=== PATIENT | female | born 1955 | race Caucasian/White ===

== ENCOUNTER 2020-11-11 22:20 | Observation (INO) | payer MEDICARE, SELFPAY ==
[2020-11-11 22:30] VITALS: BP 202/124; PULSE 74; PULSE 76; RESP 14; RESP 18; TEMP 36.7; O2SAT 95; BMI 28.1
--- NOTE | 2020-11-11 22:34 | W.ED.GENADLT ---
HPI - General Adult General: Chief complaint: ER Hold Stated complaint: HIGH BP Time Seen by Provider: 11/11/20 22:24 Source: patient and family Mode of arrival: ambulatory Limitations: no limitations History of Present Illness: HPI narrative: is a very nice 65-year-old female who comes in complaining of high blood pressure. Patient states that she took her regular medicines today including 100 mg of losartan this morning and 50 mg of atenolol tonight. She took the atenolol just before taking her blood pressure. Patient states that she checked her blood pressure and it was 188 systolic and that was very high for her. Because of this she repeatedly took her blood pressure multiple times she states each time it went higher making her more and more anxious. Patient has had in the past a prescription for clonidine and she took 0.5 mg of clonidine just prior to arrival. Patient denies any headache, visual problems, neck pain, chest pain, shortness of breath, back pain, abdominal pain, extremity pain or swelling or edema. Patient states she is asymptomatic and the only reason she checked her blood pressure is because she does so routinely every night before going to bed. Associated symptoms: Deny chest pain, confusion, diaphoresis, dyspnea, headache(s), malaise, nausea, rash, palpitations, syncope or vomiting Review of Systems Const: Denies: fever(s), chills, body aches, fatigue, malaise or diaphoresis Eyes: Denies: change in vision, blurry vision, photophobia, eye discomfort, eye discharge, eye redness or yellow eyes ENMT: Denies: throat pain, odynophagia, hoarseness, swelling of lips/tongue, ear or mastoid pain, ear discharge, change in hearing or nasal discharge Card: Denies: chest pain, palpitations, irregular heart rhythm, edema, lightheadedness, syncope, pre-syncope, dyspnea on exertion or orthopnea Resp: Denies: dyspnea, productive cough, non-productive cough, wheezing, hemoptysis or chest congestion GI: Denies: abdominal pain, nausea, vomiting, hematemesis, coffee ground emesis, heartburn, diarrhea, constipation, GI cramping, hematochezia or melena : Denies: flank pain, dysuria, urinary frequency, urinary urgency or hematuria Musc: Denies: neck pain, back pain, extremity pain, extremity swelling, joint pain, joint swelling, joint redness, joint warmth or joint stiffness Skin/Breast: Denies: rash, pruritus, erythema, skin pain or skin tenderness Neuro: Denies: headache(s), numbness in extremities, weakness in extremities, sensory changes, lack of coordination, difficulty walking, dizziness, vertigo, confusion, Slurred speech present or seizure-like activity Eddie/Lymph: Denies: easy bruising, easy bleeding, petechiae, purpura or enlarged lymph nodes All/Imm: Denies: urticaria, throat swelling, tongue swelling, facial swelling or acute wheezing PFSH ED PFSH: Medical History (Updated 11/11/20 @ 22:34 by Rona Guzman) Hypertension Physical Exam Const: COMMON NORMALS: no acute distress, patient oriented x3, no limitations and alert GENERAL APPEARANCE: cooperative HENMT: COMMON NORMALS: normocephalic, atraumatic, external ears normal, EAC's normal and Normal external nose present HEAD & SCALP: normal to inspection, normocephalic and atraumatic FACE & SINUS: normal facial exam and face symmetric NOSE: Normal external nose present and Normal nares present EXTERNAL EAR: Yes external ears normal EXTERNAL AUDITORY CANAL: EAC's normal MOUTH: Normal oral and palatal mucosa present, lip normal and tongue normal Eye: COMMON NORMALS: Equal, round and reactive pupils present and conjunctivae normal GENERAL EYE: appearance normal, both eyes and all related structures ALIGNMENT: Yes alignment normal PERIORBITAL: periorbital findings normal EYELID: eyelids normal CONJUNCTIVA: Yes conjunctivae normal SCLERA: sclerae normal PUPIL: Yes Equal, round and reactive pupils present Neck/C-Spine: COMMON NORMALS: full ROM, no lymphadenopathy, supple, no meningeal signs and no JVD GENERAL: Yes normal visual inspection and Yes trachea midline Chest: COMMONS NORMALS: normal inspection of the chest and normal palpation of entire chest wall Resp: COMMON NORMALS: normal respiratory effort, No retractions, No use of accessory muscles and clear to auscultation bilaterally EFFORT & INSPECTION: Yes able to speak in complete sentences and Yes symmetric chest movement AUSCULTATION: clear to auscultation bilaterally, no crackles, no rales, no rhonchi and no wheezes Cardio: COMMON NORMALS: no JVD, regular rate, regular rhythm, S1 normal heart sound present and S2 normal heart sound present RATE: regular rate RHYTHM: regular rhythm HEART SOUNDS: S1 normal heart sound present, S2 normal heart sound present, no click, no gallops, no murmurs and no rubs GI: COMMON NORMALS: Soft to palpation and No hepatosplenomegaly present PALPATION: Yes Soft to palpation, No Tenderness to palpation present (GI), No Guarding due to palpation present (GI), No Rigid due to palpation, Yes No hepatosplenomegaly present, No Hernia present, No Palpable mass present and No Pulsatile mass present : COMMON NORMALS: Yes no CVA tenderness BLADDER/KIDNEY EXAM: Yes no CVA tenderness EXTERNAL FEMALE EXAM: No Hernia present Back/Pelvis: COMMON NORMALS: no CVA tenderness, thoracic and lumbar spine normal to inspection, no thoracic nor lumbar tenderness and thoraco-lumbar ROM normal Extremity: COMMON NORMALS: normal to inspection, full ROM, capillary refill normal, no joint enlargement, no clubbing, cyanosis or edema and no calf tenderness Neuro: COMMON NORMALS: patient oriented x3, CN's II-XII intact bilaterally, moves all extremities, no focal motor deficits and no sensory deficits noted SENSORIUM/ORIENTATION: Yes alert MENINGEAL SIGNS: Yes no meningeal signs SPEECH: speech normal Psych: COMMON NORMALS: mental status grossly normal, Normal thought process present, cooperative, normal affect, speech normal and activity/motor behavior normal SPEECH: Yes normal speech THOUGHT PROCESS: Normal thought process present Skin: COMMON NORMALS: no rashes or lesions noted, turgor normal, no jaundice, no petechiae and no mottling GENERAL SKIN EXAM: no rashes or lesions noted and turgor normal Course Vital Signs: Vital signs: Vital Signs Temperature 98.1 F 11/11/20 22:30 Pulse Rate 80 11/12/20 04:18 Respiratory Rate 16 11/12/20 04:18 Blood Pressure 148/101 11/12/20 04:18 Pulse Oximetry 94 11/12/20 04:18 MDM - General Adult MDM Narrative: Medical decision making narrative: is a very nice 65-year-old female comes in with an elevated blood pressure. This may be hypertensive urgency but her EKG has progressed showing more ischemic changes and also her troponin has had a significant delta. Patient remains asymptomatic. Because her troponins are trending up and her EKG is showing continued change I believe she should be kept for rule out positive stress testing. I have endorsed the case to Dr. Salinas and he is agreeable to admit for further evaluation and care. Lab Data: Attestation: I reviewed the patient's lab results. Labs: Lab Results 11/11/20 11/11/20 11/11/20 Range/Units 23:00 23:00 23:01 WBC 4.9 (4.0-10.0) 10^3/ uL RBC 4.65 (4.1-5.3) 10^6/u L Hgb 14.4 (11.5-15.3) g/dL Hct 43.0 (37.0-47.0) % MCV 92.5 (81-99) fL MCH 31.0 (28.0-34.0) pg MCHC 33.5 (30.0-36.0) g/dL RDW 13.7 (12.1-15.1) % Plt Count 222 (130-400) 10^3/c mm MPV 10.0 (7.4-10.4) fL Neut % (Auto) 40.2 % Lymph % (Auto) 42.4 % Antelope % (Auto) 11.9 % Eos % (Auto) 3.5 % Baso % (Auto) 1.6 % Neut # (Auto) 1.96 (1.8-7.7) 10^3/u L Lymph # (Auto) 2.1 (0.8-4.8) 10^3/u L Antelope # (Auto) 0.6 (0.2-0.9) 10^3/u L Eos # (Auto) 0.2 (0.0-0.8) 10^3/u L Baso # (Auto) 0.1 (0.0-0.1) 10^3/u L Nucleated RBC % (a uto) 0 % Nucleated RBCs # 0.0 /100WBC D-Dimer 0.57 (0-0.59) ug/mIFE U Sodium 139 (136-145) mmol/L Potassium 4.1 (3.5-5.1) mmol/L Chloride 101 (98-107) mmol/L Carbon Dioxide 26 (22-29) mmol/L Anion Gap 16.1 (5-19) BUN 9 (8-23) mg/dL Creatinine 0.4 L (0.5-0.9) mg/dL GFR Calculation 159.7 H (90-130) mL/min Glucose 115 (65-115) mg/dL Calculated Osmolal ity 288 (285-295) mOsm/k g Calcium 9.9 (8.5-10.5) mg/dL Magnesium 1.7 (1.7-2.3) mg/dL Total Bilirubin 0.2 (0.15-1.2) mg/dL AST 24 (0-32) U/L ALT 28 (0-33) U/L Alkaline Phosphata se 85 (35-105) IU/L Troponin T Baselin e (0-10) ng/L Troponin T 120 Min burns paiute (0-10) ng/L Delta Troponin T (0-10) ABS# Total Protein 7.5 (6.6-8.7) g/dL Albumin 4.5 (3.5-5.2) g/dL Globulin 3.0 (1.3-4.6) g/dL Urine Color (Yellow) Urine Appearance (CLEAR) Urine pH (5-7) Ur Specific Gravit y (1.005-1.030) Urine Protein (Negative) Urine Glucose (UA) (Normal) Urine Ketones (Negative) Urine Blood (Negative) Urine Nitrate (Negative) Urine Bilirubin (Negative) Urine Urobilinogen (Negative) mg/dL Ur Leukocyte Norma ase (Negative) Urine RBC (0-2) /hpf Urine WBC (0-5) /hpf Ur Squamous Epith Cells (0-5) /hpf Ur Transition Epit h Cell /hpf Amorphous Sediment Urine Bacteria (NONE) /hpf 11/11/20 11/12/20 11/12/20 Range/Units 23:03 02:00 03:16 WBC (4.0-10.0) 10^3/ uL RBC (4.1-5.3) 10^6/u L Hgb (11.5-15.3) g/dL Hct (37.0-47.0) % MCV (81-99) fL MCH (28.0-34.0) pg MCHC (30.0-36.0) g/dL RDW (12.1-15.1) % Plt Count (130-400) 10^3/c mm MPV (7.4-10.4) fL Neut % (Auto) % Lymph % (Auto) % Antelope % (Auto) % Eos % (Auto) % Baso % (Auto) % Neut # (Auto) (1.8-7.7) 10^3/u L Lymph # (Auto) (0.8-4.8) 10^3/u L Antelope # (Auto) (0.2-0.9) 10^3/u L Eos # (Auto) (0.0-0.8) 10^3/u L Baso # (Auto) (0.0-0.1) 10^3/u L Nucleated RBC % (a uto) % Nucleated RBCs # /100WBC D-Dimer (0-0.59) ug/mIFE U Sodium (136-145) mmol/L Potassium (3.5-5.1) mmol/L Chloride (98-107) mmol/L Carbon Dioxide (22-29) mmol/L Anion Gap (5-19) BUN (8-23) mg/dL Creatinine (0.5-0.9) mg/dL GFR Calculation (90-130) mL/min Glucose (65-115) mg/dL Calculated Osmolal ity (285-295) mOsm/k g Calcium (8.5-10.5) mg/dL Magnesium (1.7-2.3) mg/dL Total Bilirubin (0.15-1.2) mg/dL AST (0-32) U/L ALT (0-33) U/L Alkaline Phosphata se (35-105) IU/L Troponin T Baselin e 6 (0-10) ng/L Troponin T 120 Min burns paiute 14.87 H (0-10) ng/L Delta Troponin T 8.87 (0-10) ABS# Total Protein (6.6-8.7) g/dL Albumin (3.5-5.2) g/dL Globulin (1.3-4.6) g/dL Urine Color Yellow (Yellow) Urine Appearance Sl hazy (CLEAR) Urine pH 7 (5-7) Ur Specific Gravit y 1.000 L (1.005-1.030) Urine Protein Neg (Negative) Urine Glucose (UA) Norm (Normal) Urine Ketones Negative (Negative) Urine Blood Neg (Negative) Urine Nitrate Negative (Negative) Urine Bilirubin Neg (Negative) Urine Urobilinogen Norm (Negative) mg/dL Ur Leukocyte Norma ase 2+ H (Negative) Urine RBC 0-4 H (0-2) /hpf Urine WBC 15-25 H (0-5) /hpf Ur Squamous Epith Cells 0-4 H (0-5) /hpf Ur Transition Epit h Cell 0-4 /hpf Amorphous Sediment Not Reportable Urine Bacteria Trace (NONE) /hpf Imaging Data^: CXR: Attestation: I personally reviewed and interpreted this imaging study as follows: EKG Data^: EKG 1: Attestation: I personally reviewed and interpreted this EKG as follows: EKG interpretation date: 11/11/20 EKG interpretation time: 23:48 Interpretation: Normal sinus rhythm at 70 beats minute, T wave inversions in V2 and V3. Mild ST segment depression associated with this. No old for comparison. EKG 2: Attestation: I personally reviewed and interpreted this EKG as follows: EKG interpretation date: 11/12/20 EKG interpretation time: 02:40 Interpretation: Normal sinus rhythm at 66 beats a minute, mild ST segment depression inferiorly T wave inversions in lead III. T wave inversions V1 through V4 with mild ST segment depression in V3 and V4. Discharge Plan Discharge Condition: Good Coding Level of Care Code ED Tour Consultant for Chg Fwd Exam Comprehensive
[2020-11-11 23:00] VITALS: BP 198/115; PULSE 72; RESP 16; O2SAT 92
[2020-11-11] MEDS: LORazepam 2 mg/mL INJ 1 mL 0.5 MG IVP (23:03)
[2020-11-11 23:07] LABS: Basophils # 0.1 10^3/uL (0.0-0.1); Basophils % 1.6 %; Eosinophils # 0.2 10^3/uL (0.0-0.8); Eosinophils % 3.5 %; Hemoglobin 14.4 g/dL (11.5-15.3); Lymphocytes # 2.1 10^3/uL (0.8-4.8); Lymphocytes % 42.4 %; Mean Corpuscular HGB Conc 33.5 g/dL (30.0-36.0); Mean Corpuscular Volume 92.5 fL (81-99); Monocytes # 0.6 10^3/uL (0.2-0.9); Monocytes % 11.9 %; Neutrophils # 1.96 10^3/uL (1.8-7.7); Neutrophils % 40.2 %; Nucleated Red Blood Cells % 0 %; Platelet Count 222 10^3/cmm (130-400); Red Blood Count 4.65 10^6/uL (4.1-5.3); Red Cell Distribution Width 13.7 % (12.1-15.1); White Blood Count 4.9 10^3/uL (4.0-10.0)
[2020-11-11 23:24] LABS: Alanine Aminotransferase 28 U/L (0-33); Albumin Level 4.5 g/dL (3.5-5.2); Alkaline Phosphatase 85 IU/L (35-105); Anion Gap 16.1 (5-19); Aspartate Amino Transferase 24 U/L (0-32); Blood Urea Nitrogen 9 mg/dL (8-23); Calcium 9.9 mg/dL (8.5-10.5); Carbon Dioxide 26 mmol/L (22-29); Chloride 101 mmol/L (98-107); Glomerular Filtration Rate 159.7 mL/min (90-130); Glucose 115 mg/dL (65-115); Magnesium 1.7 mg/dL (1.7-2.3); Osmolality Calculated 288 mOsm/kg (285-295); Potassium 4.1 mmol/L (3.5-5.1); Sodium 139 mmol/L (136-145); Total Bilirubin 0.2 mg/dL (0.15-1.2); Total Protein 7.5 g/dL (6.6-8.7)
[2020-11-11 23:30] VITALS: BP 155/96; PULSE 71; RESP 18; O2SAT 95
--- NOTE | 2020-11-11 23:54 | ECG_ITS ---
[facility] Test Date: 2020-11-11 Pat Name: LYSSA PALMER Department: Room: Gender: Female Signal Manager: : 1955 Requested By: Rona Venegas Order Number: [id number] Flaquita MD: Kris Loja M.D. Measurements Intervals [place] Rate: 70 P: 28 OR: 182 QRS: -28 QRSD: 95 T: 12 QT: 417 QTc: 453 Interpretive Statements SINUS RHYTHM BORDERLINE LEFT AXIS DEVIATION [QRS AXIS < -20] MINIMAL ST DEPRESSION [0.025+ mV ST DEPRESSION] No previous ECG available for comparison Electronically Signed On 11-12-2020 13:06:08 ENTERPRISE CLOUD ARCHITECT by Kris Loja M.D. [id number] f
[2020-11-12] VITALS (18 sets, daily range): BP systolic 129–168; BP diastolic 78–103; PULSE 68–80; RESP 1–18; O2SAT 92–95
[2020-11-12 00:17] LABS: Troponin(5th) Baseline 6 ng/L (0-10)
--- NOTE | 2020-11-12 01:54 | ECG_ITS ---
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 Measurements Intervals [place] Rate: 66 P: 0 IL: 171 QRS: -28 QRSD: 89 T: 5 QT: 430 QTc: 453 Interpretive Statements SINUS RHYTHM LOW QRS VOLTAGE IN PRECORDIAL LEADS [QRS DEFLECTION < 1.0 mV IN CHEST LEADS] POSSIBLE RIGHT VENTRICULAR CONDUCTION DELAY [RSR (QR) IN V1/V2] POSSIBLE ANTERIOR MYOCARDIAL INFARCTION , OF INDETERMINATE AGE [30 ms Q WAVE IN V3/V4, OR R < 0.2 mV IN V4] Compared to ECG 11/11/2020 23:48:29 Low QRS voltage now present Myocardial infarct finding now present ST (T wave) deviation no longer present Electronically Signed On 11-12-2020 17:02:27 DUCT MAKER by Kris Loja M.D. [id number] eason
[2020-11-12 02:34] LABS: Troponin 5 2HR 14.87 ng/L (0-10); Troponin 5 2HR Delta 8.87 ABS# (0-10)
--- NOTE | 2020-11-12 03:20 | PM.HP ---
Providers/Chief Complaint Primary Care Provider: Palma Bae MD Chief Complaint: HIGH BP History of Present Illness LYSSA PALMER is a 65 year old female who has history of hypertension presented today with chief complaint of blood pressure staying high. Patient usually checks her pressure at night before going to bed, last night her blood pressure first reading 155/60 mmHg, she took her nighttime atenolol that she usually takes, recheck blood pressure twice readings 165 systolic millimeter mercury, 180 mmHg that concerned her and increase her anxiety. She started thinking about Covid associated with hypotension and decided to come to the hospital for further evaluation. She never experienced any chest pain shortness of breath, nausea, vomiting neurological changes, weakness in her arms or legs. Usually she takes losartan, atenolol, she stopped taking amlodipine because her blood pressure was staying low. Currently she is on keto diet and last night she tried mashed potatoes otherwise she is trying to eat carbohydrate restricted diet. is stating that she stays tired most of the time. Diagnosis in the ER revealed hypertension, she received lorazepam 0.5 mg IV push which seemed to improve her blood pressure at the time my evaluation her blood pressure was 165/103mmhg, she had no neurological changes, EKG was showing T wave inversion and ST depression in anterolateral leads, troponin second troponin XIV dose of 8.8, she never experienced any chest pain throughout this. Decision was made to observe her because of EKG changes. Review of Systems Const: Denies: fever(s) Eyes: Denies: change in vision ENMT: Denies: throat pain Card: Denies: chest pain Resp: Denies: dyspnea GI: Denies: abdominal pain : Denies: flank pain Musc: Denies: neck pain Skin/Breast: Denies: rash Neuro: Denies: headache(s) Psych: Reports: anxiety Endo: Denies: polyuria Eddie/Lymph: Denies: easy bruising All/Imm: Denies: urticaria Medications/Allergies Allergies Allergy/AdvReac Type Severity Reaction Status Date / Time ciprofloxacin [From Cipro] Allergy ADR-Nausea Verified 11/11/20 22:30 Penicillins Allergy ALGY-Rash Verified 11/11/20 22:30 Wkndywv-Bps-Wsr Reductase Allergy ADR-Muscle Verified 11/11/20 22:30 Inhibitor Pain PFSH Acute PFSH: Medical History Breast cyst Hypertension Surgical History H/O knee surgery H/O: hysterectomy Hx of tonsillectomy Tubal ligation status Family History Sister Family history of premature coronary artery disease Other CAD (coronary artery disease) Social History Smoking and tobacco status: never smoked Alcohol intake: never Substance/Drug Use: never Household members: spouse Housing: House Vitals/I&O/Wt Last Vital Signs Temp 98.1 F 11/11/20 22:30 Pulse 69 11/12/20 02:30 Resp 16 11/12/20 02:30 BP 148/89 11/12/20 02:30 Pulse Ox 95 11/12/20 02:30 Weight last 48 hrs Weight 81.647 kg Physical Exam Narrative: EXAM NARRATIVE: Middle-age female appears younger than stated age Well-built well-hydrated Appears anxious about her blood pressure and Covid pandemic She is also endorsing social stressors because of her recent move from [place] to [place] S1, S2 no murmur appreciated Abdomen soft nontender bowel sound present No neurological deficit noted, GCS 15 awake alert oriented x3 EOMI, PERRLA Lower extremity no edema gangrene or ulcer Anxious mood No hemodynamic compromise Data : 11/11/20 23:00 11/11/20 23:00 A&P Assessment and plan (1) Hypertensive urgency: Hypertensive urgency Patient is endorsing social stressors, stopped taking amlodipine about 2 months ago currently on keto diet no active chest pain shortness of breath or neurological changes Her systolic blood pressure is ranging between 140s to 160smmhg Normal electrolytes I would add amlodipine to her atenolol and losartan regimen and discussed option of adding a diuretic if her blood pressure stays high My threshold to start ACS protocol would be low considering EKG changes, will wait on 6-hour troponin Status: Acute Additional A&P Information Abnormal EKG T wave inversion lead III, aVF ST depression V2 V3 V4 No active chest pain no significant delta troponin I would request echo in the morning to rule out wall motion abnormality She does have family history of premature coronary disease Anxiety: I would add 0.25 mg of Ativan for as needed use Cardiac diet DVT prophylaxis Lovenox Full code Attestations Medical Necessity Statement*: Anticipating discharge in less than 48 hours continued overnight monitoring because of significant ST changes on EKG and hypertensive urgency Time Spent in Patient Care: (>than 50% of time spent in counselling and/or direct pt care on unit). 50mins Coding Level of Care Code Acute Qual Research Manager for Eric Younger Diagnoses Hypertensive urgency I16.0
[2020-11-12 03:29] LABS: Blood Urine Neg (Negative); Glucose Urine UA Norm (Normal); Ketones Urine Negative (Negative); Nitrate Urine Negative (Negative); Protein Urine Neg (Negative); Urine Appearance SL Hazy (CLEAR); Urine Color Yellow (Yellow); pH Urine 7 (5-7)
[2020-11-12 03:30] LABS: Add Urine Microscopic? YES; Bilirubin Urine Neg (Negative); Leukocyte Esterase Urine 2+ (Negative); Urobilinogen Urine Norm (Negative)
[2020-11-12 03:31] LABS: Bacteria Urine TRACE /hpf; RBC Urine 0-4 /hpf (0-2); Squamous Epithelial Cell Urine 0-4 /hpf (0-5); Transitional Epi Cells Urine 0-4 /hpf; WBC Urine 15-25 /hpf (0-5)
[2020-11-12 03:32] LABS: Add Urine Culture? Yes
[2020-11-12 03:55] LABS: D Dimer 0.57 ug/mIFEU (0-0.59)
[2020-11-12] MEDS: cefTRIAXone 1,000 MG in sodium chloride 0.9% (plus) 50 ML 100 MG IV (04:13)
--- NOTE | 2020-11-12 04:36 | USCV_ITS ---
LYSSA PALMER Age: 65 Gender: F : 1955 Exam Date: 11/12/2020 05:08 Ordering Phys: Diane Salinas MD Technologist: Jennifer Marcus [place] [facility] [place] Indication: ST DEPRESSION BP: 150 / 87 HR: 66 Rhythm: Sinus Technical Quality: Adequate MEASUREMENTS (Male / Female) Normal Values 2D ECHO LV Diastolic Diameter PLAX 4.0 cm 4.2 - 5.9 / 3.9 - 5.3 cm LV Systolic Diameter PLAX 2.1 cm LV Chamber Size 4.0 cm IVS Diastolic Thickness 1.1 cm 0.6 - 1.0 / 0.6 - 0.9 cm IVS Systolic Thickness 1.4 cm LVPW Diastolic Thickness 1.2 cm 0.6 - 1.0 / 0.6 - 0.9 cm LVPW Systolic Thickness 1.9 cm RV Chamber Size 2.2 cm LVOT Diameter 2.0 cm LV Ejection Fraction 2D Teich 79.1 % LV Ejection Fraction MOD 2C 66.3 % LV Ejection Fraction 2C AL 67.5 % LA Diameter 3.0 cm LA Width 2.9 cm LA Height 3.1 cm RA Width 3.0 cm RA Height 3.9 cm Aorta at Sinotubular Diameter 2.9 cm M-MODE LV Diastolic Diameter MM 4.6 cm 4.2 - 5.9 / 3.9 - 5.3 cm LV Systolic Diameter MM 3.1 cm LV Ejection Fraction MM Teich 61.6 % IVS Diastolic Thickness MM 0.8 cm 0.6 - 1.0 / 0.6 - 0.9 cm IVS Systolic Thickness MM 1.4 cm LVPW Diastolic Thickness MM 1.2 cm 0.6 - 1.0 / 0.6 - 0.9 cm LVPW Systolic Thickness MM 1.4 cm RV Diastolic Diameter MM 1.5 cm Aortic Annulus Diameter 3.3 cm LA Ao Ratio MM 1.1 MV E Point Septal Separation 0.5 cm DOPPLER AV Peak Velocity 124.0 cm/s LVOT Peak Velocity 90.0 cm/s AV Area Cont Eq vti 2.9 cm squared AV Area Cont Eq pk 2.3 cm squared MV Area PHT 3.2 cm squared Mitral E to A Ratio 0.8 MV E' Velocity 38.0 cm/s Mitral E to MV E' Ratio 9.5 Mitral E to LV E' Lateral Ratio 10.4 Mitral E to LV E' Septal Ratio 8.9 TR Peak Velocity 267.4 cm/s TR Peak Gradient 28.6 mmHg TR Mean Velocity 171.6 cm/s TR Mean Gradient 13.9 mmHg TR Velocity Time Integral 55.8 cm TV Peak E Velocity 48.0 cm/s Right Atrial Pressure 3.0 mmHg Pulmonary Artery Systolic Pressu 31.6 mmHg PV Peak Velocity 49.0 cm/s RV Acceleration Time 0.2 s RV Ejection Time 0.4 s RV AcT/ET 0.5 FINDINGS Left Ventricle Normal left ventricular size and systolic function, EF 61 %. Mild left ventricular hypertrophy. No regional wall motion abnormalities. Right Ventricle The right ventricle is normal in size and function. Right Atrium The right atrium is normal in size. Left Atrium The left atrium is normal in size. Mitral Valve Mild mitral annular calcification. Aortic Valve Thickened aortic valve. Trace aortic valve regurgitation. Tricuspid Valve Trace tricuspid valve regurgitation. Estimated pulmonary artery peak systolic pressure 32 mmHg Pulmonic Valve Pulmonic valve not well visualized. Pericardium Normal pericardium without effusion. Aorta Normal ascending aorta dimension. CONCLUSIONS Normal left ventricular size and systolic function, EF 61 %. Mild left ventricular hypertrophy. Type I diastolic dysfunction. No regional wall motion abnormalities. Thickened aortic valve. Trace aortic valve regurgitation. Mild mitral annular calcification. Trace tricuspid valve regurgitation. Estimated pulmonary artery peak systolic pressure 32 mmHg. There is no pericardial effusion. There are no intracardiac masses. No previous study is available for comparison. Dr Dhruv Hawley MD [facility] (Electronically Signed) Final Date: 12 November 2020 15:40 S
[2020-11-12 05:14] LABS: Chol HDL Ratio 5.54 mg/dL (0.0-4.40); Cholesterol 255 mg/dL (0-200); HDL Cholesterol 46 mg/dL (60-100); LDL Cholesterol Calculated 150 mg/dL (50-129); LDL HDL Ratio 3.26 RATIO (0.00-3.22); Thyroid Stimulating Hormone 5.11 uIU/mL (0.27-4.20); Triglycerides 293 mg/dL (0-150)
[2020-11-12] MEDS: enoxaparin 40 mg/0.4 mL Syringe SUBCUT (05:18)
--- NOTE | 2020-11-12 05:54 | ECG_ITS ---
[facility] Test Date: 2020-11-12 Pat Name: LYSSA PALMER Department: Room: EDIP Gender: Female Cpo: : 1955 Requested By: Rona Venegas Order Number: [id number] Flaquita MD: Kris Loja M.D. Measurements Intervals [place] Rate: 65 P: -48 MA: 110 QRS: -15 QRSD: 106 T: 12 QT: 438 QTc: 456 Interpretive Statements SINUS RHYTHM WITH SHORT MA INTERVAL LOW QRS VOLTAGE IN PRECORDIAL LEADS [QRS DEFLECTION < 1.0 mV IN CHEST LEADS] ST DEVIATION AND MODERATE T-WAVE ABNORMALITY, CONSIDER ANTERIOR ISCHEMIA [-0.1+ mV T WAVE IN V3/V4] Compared to ECG 11/12/2020 02:40:27 Short MA interval now present T-wave abnormality now present Possible ischemia now present Myocardial infarct finding no longer present Electronically Signed On 11-12-2020 17:00:37 TELEGRAPH EQUIPMENT MAINTAINER by Kris Loja M.D. [id number]
[2020-11-12 06:34] LABS: Troponin 5 6HR 10.77 ng/L (0-10); Troponin 5 6HR Delta 4.77 ng/L (0-12)
[2020-11-12] MEDS: amlodipine 5 mg Tablet PO (08:45)
[2020-11-12] MEDS: losartan 50 mg Tablet 100 MG PO (08:45)
--- NOTE | 2020-11-12 15:55 | PM.DCS ---
Discharge Providers Date of Admission: 11/12/20 04:25 Date of Discharge: November 12, 2020 Attending Provider at Admission: Diane Salinas MD Attending Provider at Discharge: Donavan Basurto MD Primary Care Provider: Palma Bae MD Diagnoses at Discharge Discharge Diagnosis (1) Hypertensive urgency: Status: Acute Reason for Visit Reason for Visit: HIGH BP Hospital Course Hospital Course This is a 65-year-old female with a past medical history of hypertension, hypothyroidism, GERD, who presents to [facility] due to anxiety and elevated blood pressure Patient was admitted to [facility] for hypertensive urgency, her blood pressure was managed by reinstituting her home medications, restarting her amlodipine which she was not taking. Blood pressures have improved, she is asymptomatic. I have discharged her on amlodipine 10 mg daily. Atenolol 50 mg daily, losartan 100 mg daily. And clonidine 0.1 mg twice daily as needed for systolic blood pressure greater than 180 or diastolic blood pressure greater than 90. Patient should check blood pressures twice daily, bring blood pressure log to her primary care physician's office. On admission patient was found to have EKG changes, T wave inversions in lead III, aVF, and ST depressions V2, V3, V4. Troponin series did not show any significant delta troponin. No chest pain complaints. No shortness of breath complaints. Does have a family history of CAD in her father in his 60s. Echocardiogram ordered showed an EF of 61%, mild LVH, type I diastolic dysfunction, no regional wall motion abnormalities. Patient declined admission for stress testing, advised of the risks risk and benefits, she voiced understanding, all questions answered, declined testing as her father from a myocardial infarct during a stress test. She has a lot of reservations about the cardiac stress testing. Nonetheless she remains asymptomatic, no chest pain, no shortness of breath, blood pressures are well controlled, no significant delta troponin. I have discharged her on aspirin, statin, her home atenolol. She should follow-up with cardiology in 1 to 2 weeks for consideration of stress testing. Patient was advised that if anytime she were to have chest pain or shortness of breath go to the emergency room. She voices any, all questions answered, agreed to proceed. Patient's TSH was also found to be mildly elevated at 5, recheck TSH in 6 weeks. Physical Exam Const: COMMON NORMALS: no acute distress and patient oriented x3 HENMT: COMMON NORMALS: normocephalic HEAD & SCALP: normocephalic Neck/C-Spine: COMMON NORMALS: no JVD Resp: COMMON NORMALS: normal respiratory effort, No retractions, No use of accessory muscles and clear to auscultation bilaterally AUSCULTATION: clear to auscultation bilaterally Cardio: COMMON NORMALS: no JVD, regular rate, regular rhythm, S1 normal heart sound present and S2 normal heart sound present RATE: regular rate RHYTHM: regular rhythm HEART SOUNDS: S1 normal heart sound present and S2 normal heart sound present GI: COMMON NORMALS: Normal to inspection, nondistended, normoactive bowel sounds present, Soft to palpation, non-tender, No hepatosplenomegaly present, no masses and no bruits PALPATION: Yes Soft to palpation and Yes No hepatosplenomegaly present Extremity: COMMON NORMALS: capillary refill normal, no clubbing, cyanosis or edema, no calf tenderness and no pedal edema Neuro: COMMON NORMALS: patient oriented x3 Psych: COMMON NORMALS: mental status grossly normal Discharge Data Data Completed and Pending: Completed Studies During Hospitalization Category Date Time Status CV echo complete* [id number] Routine Ultrasound 11/12/20 04:36 Completed Pending at discharge Category Date Time Status Basic Metabolic P allen AM LABS Lab 11/13/20 04:00 Ordered Complete Blood Co unt w/Auto AM LABS Lab 11/13/20 04:00 Ordered Urine Culture Sta t Lab 11/12/20 03:16 Received Labs from last 24 hours 11/12/20 11/12/20 11/12/20 05:59 03:16 02:00 WBC RBC Hgb Hct MCV MCH MCHC RDW Plt Count MPV Neut % (Auto) Lymph % (Auto) [place] % (Auto) Eos % (Auto) Baso % (Auto) Neut # (Auto) Lymph # (Auto) [place] # (Auto) Eos # (Auto) Baso # (Auto) Nucleated RBC % (a uto) Nucleated RBCs # D-Dimer Sodium Potassium Chloride Carbon Dioxide Anion Gap BUN Creatinine GFR Calculation Glucose Calculated Osmolal ity Calcium Magnesium Total Bilirubin AST ALT Alkaline Phosphata se Troponin T Baselin e Troponin T 120 Min [place] 14.87 H Delta Troponin T 8.87 Troponin T Hi Sens 6Hr 10.77 H Troponin T Hi Sens 6Hr Delta 4.77 Total Protein Albumin Globulin Triglycerides Cholesterol LDL Cholesterol, C alc HDL Cholesterol LDL/HDL Ratio Cholesterol/HDL Ra nica TSH Urine Color Yellow Urine Appearance Sl hazy Urine pH 7 Ur Specific Gravit y 1.000 L Urine Protein Neg Urine Glucose (UA) Norm Urine Ketones Negative Urine Blood Neg Urine Nitrate Negative Urine Bilirubin Neg Urine Urobilinogen Norm Ur Leukocyte Norma ase 2+ H Urine RBC 0-4 H Urine WBC 15-25 H Ur Squamous Epith Cells 0-4 H Ur Transition Epit h Cell 0-4 Amorphous Sediment Not Reportable Urine Bacteria Trace 11/11/20 11/11/20 11/11/20 23:03 23:03 23:01 WBC RBC Hgb Hct MCV MCH MCHC RDW Plt Count MPV Neut % (Auto) Lymph % (Auto) [place] % (Auto) Eos % (Auto) Baso % (Auto) Neut # (Auto) Lymph # (Auto) [place] # (Auto) Eos # (Auto) Baso # (Auto) Nucleated RBC % (a uto) Nucleated RBCs # D-Dimer 0.57 Sodium Potassium Chloride Carbon Dioxide Anion Gap BUN Creatinine GFR Calculation Glucose Calculated Osmolal ity Calcium Magnesium Total Bilirubin AST ALT Alkaline Phosphata se Troponin T Baselin e 6 Troponin T 120 Min [place] Delta Troponin T Troponin T Hi Sens 6Hr Troponin T Hi Sens 6Hr Delta Total Protein Albumin Globulin Triglycerides 293 H Cholesterol 255 H LDL Cholesterol, C alc 150 H HDL Cholesterol 46 L LDL/HDL Ratio 3.26 H Cholesterol/HDL Ra nica 5.54 H TSH 5.11 H Urine Color Urine Appearance Urine pH Ur Specific Gravit y Urine Protein Urine Glucose (UA) Urine Ketones Urine Blood Urine Nitrate Urine Bilirubin Urine Urobilinogen Ur Leukocyte Norma ase Urine RBC Urine WBC Ur Squamous Epith Cells Ur Transition Epit h Cell Amorphous Sediment Urine Bacteria 11/11/20 11/11/20 23:00 23:00 WBC 4.9 RBC 4.65 Hgb 14.4 Hct 43.0 MCV 92.5 MCH 31.0 MCHC 33.5 RDW 13.7 Plt Count 222 MPV 10.0 Neut % (Auto) 40.2 Lymph % (Auto) 42.4 [place] % (Auto) 11.9 Eos % (Auto) 3.5 Baso % (Auto) 1.6 Neut # (Auto) 1.96 Lymph # (Auto) 2.1 [place] # (Auto) 0.6 Eos # (Auto) 0.2 Baso # (Auto) 0.1 Nucleated RBC % (a uto) 0 Nucleated RBCs # 0.0 D-Dimer Sodium 139 Potassium 4.1 Chloride 101 Carbon Dioxide 26 Anion Gap 16.1 BUN 9 Creatinine 0.4 L GFR Calculation 159.7 H Glucose 115 Calculated Osmolal ity 288 Calcium 9.9 Magnesium 1.7 Total Bilirubin 0.2 AST 24 ALT 28 Alkaline Phosphata se 85 Troponin T Baselin e Troponin T 120 Min [place] Delta Troponin T Troponin T Hi Sens 6Hr Troponin T Hi Sens 6Hr Delta Total Protein 7.5 Albumin 4.5 Globulin 3.0 Triglycerides Cholesterol LDL Cholesterol, C alc HDL Cholesterol LDL/HDL Ratio Cholesterol/HDL Ra nica TSH Urine Color Urine Appearance Urine pH Ur Specific Gravit y Urine Protein Urine Glucose (UA) Urine Ketones Urine Blood Urine Nitrate Urine Bilirubin Urine Urobilinogen Ur Leukocyte Norma ase Urine RBC Urine WBC Ur Squamous Epith Cells Ur Transition Epit h Cell Amorphous Sediment Urine Bacteria Vitals: Last Vital Signs Temp 98.1 F 11/11/20 22:30 Pulse 80 11/12/20 14:27 Resp 18 11/12/20 14:27 BP 152/101 11/12/20 14:27 Pulse Ox 94 11/12/20 04:18 Discharge Plan Discharge Patient Disposition: Home Condition: Stable Prescriptions: New atorvastatin 40 mg tablet 20 mg PO DAILY 30 Days Qty: 30 RF: 0 clonidine HCl 0.1 mg Tablet 0.1 mg PO BID PRN (Reason: FOR SBP>180 or DBP>100) 30 Days Qty: 60 RF: 0 aspirin 81 mg tablet,delayed release (DR/EC) 81 mg PO DAILY 30 Days Qty: 30 RF: 0 Continued omeprazole 40 mg Capsule,Delayed Release(Dr/Ec) 40 mg PO DAILY@0800 RF: 0 Hair,Skin and Nails Tablet 1 tab PO DAILY@0800 RF: 0 losartan 100 mg Tablet 100 mg PO DAILY@0800 RF: 0 Women's Multivitamin Gummies 200 mcg Tablet,Chewable 1 tab PO DAILY@0800 RF: 0 Vitamin C 1 tab PO DAILY@0800 RF: 0 atenolol 50 mg Tablet 50 mg PO DAILY@1700 Qty: 0 RF: 0 Changed amlodipine 5 mg Tablet 10 mg PO DAILY@0800 Qty: 0 RF: 0 Discharge Orders: Discharge Order (Routine); Ordered 11/12/20 Ordered By: Donavan Basurto Referrals: Palma Bae MD [Primary Care Provider] - Dhruv Hawley MD [Physician] - 11/20/20 (refer to cardiology in 1 week) Discharge Diet: Advance as tolerated Discharge Activity: Resume usual activity Patient Instructions: Chest Pain (ED), Chronic Hypertension (ED), Hypertensive Crisis (ED) Activity Restrictions/Additional Instructions: -If you have chest pain go immediately to the emergency room -Take aspirin and statin for cardioprotection -I have increased your amlodipine to 10 mg daily -Take clonidine 0.1 mg twice daily as needed for systolic blood pressure greater than 180 or diastolic blood pressure greater than 90 -Check blood pressures 2 times daily, bring to primary care physician in 1 week -Recheck TSH in 6 weeks Discharge Attestations Time Spent in Discharge Care*: less than 30 min Quality Metrics Clinical Quality Measures During this hospital stay, did patient experience: None Coding Level of Care Code Acute Senior [employer] Diagnoses Hypertensive urgency I16.0
[2020-11-12] MEDS: cloNIDine 0.1 mg Tablet PO (15:57)
[2020-11-12] MEDS: atenolol 50 mg Tablet PO (16:50)
== END 2020-11-12 17:37 | disposition home or self-care (01) ==
LOC: ER 22:36 → ER IP 11-12 04:28
PROVIDERS: Emergency Medicine; Admitting Provider Internal Medicine; Emergency Provider Family Medicine; PCP Family Medicine; Visit Provider Family Medicine
DX: I16.0 Hypertensive urgency (principal); I10 Essential (primary) hypertension; Z82.49 Family history of ischemic heart disease and other diseases of the circulatory system; E03.9 Hypothyroidism, unspecified; K21.9 Gastro-esophageal reflux disease without esophagitis
CPT/HCPCS: 80053; 80061; 81001; 83735; 84443; 84484; 85025; 85378; 87086; 93005; 93306; 96365; 96372; 96375; 99283; 99285; G0378; J0696; J1650; J2060

== ENCOUNTER 2021-08-02 09:12 | Outpatient (CLI) | payer MEDICARE, SELFPAY ==
--- NOTE | 2021-08-02 09:16 | MM_ITS ---
WS: [id number] BILATERAL DIGITAL SCREENING MAMMOGRAPHY WITH CAD CLINICAL INFORMATION: SCREENING HISTORY: Screening mammogram. No current complaints. COMPARISON: May 28, 2020 TECHNIQUE: Bilateral CC and MLO views. FINDINGS: Scattered fibroglandular densities bilaterally. No suspicious focal mass, asymmetry, calcifications, or architectural distortion. No evidence of malignancy. A few punctate calcifications. MM/[place] [id number] IMPRESSION: BI-RADS: 2-Benign FOLLOW UP: 1 Year Follow-up Recommend return to annual screening mammography.
== END 2021-08-02 09:13 | disposition home or self-care (01) ==
LOC: RADSHAW 09:15
PROVIDERS: PCP Family Medicine; Visit Provider Family Medicine
DX: Z12.31 Encounter for screening mammogram for malignant neoplasm of breast (principal)
CPT/HCPCS: 77067

== ENCOUNTER 2022-10-20 13:20 | Outpatient (CLI) | payer MEDICARE, SELFPAY ==
--- NOTE | 2022-10-20 13:27 | XR_ITS ---
WS: [id number] DEXA (DUAL ENERGY X-RAY ABSORPTIOMETRY) Bone mineral density was performed using a [employer] machine. HISTORY: POSTMENOPAUSAL COMPARISON: None available. Lumbar spine BMD (L1-L4): 1.748 g/cm2 T score: 4.7 Z score: 5.7 Total hip BMD: Left: 1.308 g/cm2. T score: 2.4 Z score: 3.3 Right: 1.309 g/cm2. T score: 2.4 Z score: 3.3 10 year probability of a major osteoporotic fracture is 5.4%. XR/XR DEXA axial skeleton* [id number] IMPRESSION: NORMAL BONE MINERAL DENSITY based upon the WHO classification for females.
== END 2022-10-20 13:21 | disposition home or self-care (01) ==
LOC: RAD 13:20
PROVIDERS: PCP Family Medicine; Visit Provider Family Medicine
DX: Z78.0 Asymptomatic menopausal state (principal)
CPT/HCPCS: 77080